=== PATIENT | female | born 1955 | race Two or more races ===

== ENCOUNTER 2018-01-27 15:35 | Observation (INO) | payer OTHER ==
--- NOTE | 2018-01-27 16:09 | PDOC ---
History of Present Illness - General Chief Complaint: Rectal Bleed Stated Complaint: BLOOD TRANSFUSION Time Seen by Provider: 01/27/18 15:56 - History of Present Illness Initial Comments: 62 year old female with PMH of HTN and chronic anemia (on iron supplementation) presenting with a few weeks of fatigue and occasional SOB. Patient admits that she had been off her iron supplementation when she moved over to [place] a 2 years prior but recently restarted the supplementation one year ago on an intermittent basis, although she was told to continue it daily. She saw Dr. Woodson today who checked her HgB and noted that it was in the 6s so she was sent to the ED for transfusion and further workup. Of note, she received an endoscopy and colonoscopy 5 years prior during another episode of severe anemia which did not demonstrate any GI lesions. She denies bright red blood from any orifice but does have dark stools (she is on iron supplementation). 01/27/18 16:09 Past History - Past Medical History Allergies/Adverse Reactions: Allergies Allergy/AdvReac Type Severity Reaction Status Date / Time gabapentin AdvReac Abdominal Verified 01/27/18 16:16 pain Home Medications: Ambulatory Orders Multivitamin [Daily Multiple Vitamin] 1 each PO DAILY tablet 05/17/17 Aspirin 81 mg PO DAILY 01/27/18 Review of Systems - Review of Systems Constitutional: No: Chills, Diaphoresis, Fever, Night Sweats HEENTM: No: Blurred Vision, Tearing, Recent change in vision Respiratory: Yes: SOB with Exertion. No: Cough, Orthopnea, Shortness of Breath , SOB at Rest, Wheezing, Hemoptysis Cardiac (ROS): Yes: Lightheadedness. No: Chest Pain, Edema, Irregular Heart Rate, Palpitations ABD/GI: No: Diarrhea, Nausea, Vomiting, Tarry Stools : No: Burning, Dysuria, Discharge, Frequency Musculoskeletal: No: Back Pain, Joint Pain, Muscle Weakness Integumentary: No: Bruising, Erythema, Flushing Neurological: No: Headache, Numbness, Paresthesia, Ataxia Psychiatric: No: Anxiety Endocrine: No: Intolerance to Cold, Increased Thirst, Increased Urine, Unexplained Weight Loss Hematologic/Lymphatic: Yes: Anemia. No: Blood Clots, Easy Bleeding *Physical Exam - Physical Exam General Appearance: Yes: Nourished, Appropriately Dressed, Other (Pale). No: Apparent Distress HEENT: positive: EOMI, MICHELL, Normal ENT Inspection, Normal Voice Neck: positive: Trachea midline, Normal Thyroid, Supple. negative: Tender, Rigid Respiratory/Chest: positive: Lungs Clear, Normal Breath Sounds. negative: Chest Tender, Respiratory Distress, Accessory Muscle Use Cardiovascular: positive: Regular Rhythm, Tachycardia. negative: Regular Rate Gastrointestinal/Abdominal: positive: Normal Bowel Sounds, Flat, Soft. negative : Tender Rectal Exam: positive: normal exam, normal rectal tone, heme positive stool. negative: heme negative stool, hemorrhoids Lymphatic: negative: Adenopathy, Tenderness Musculoskeletal: positive: Normal Inspection. negative: Decreased Range of Motion Extremity: positive: Normal Capillary Refill, Normal Inspection, Normal Range of Motion. negative: Tender Integumentary: positive: Normal Color, Dry, Warm Neurologic: positive: Fully Oriented, Alert, Normal Mood/Affect, Normal Response , Motor Strength / ED Treatment Course - LABORATORY CBC & Chemistry Diagram: 01/27/18 16:40 01/27/18 16:40 Medical Decision Making - Medical Decision Making 62 year old female with PMH of of anemia and HTN presenting with SOB, fatigue, and pallor for the past few weeks in the settings of dark stools. Although patient is taking iron supplementation, the stool was heme positive so patient will be admitted for GI bleed workup and transfusion. Patietn was signed out to Dr. Yi pending transfusion. 01/27/18 17:51 *DC/Admit/Observation/Transfer Diagnosis at time of Disposition: Anemia Qualifiers: Anemia type: unspecified type Qualified Code(s): D64.9 - Anemia, unspecified GI bleed Qualifiers: GI bleed type/associated pathology: melena Qualified Code(s): K92.1 - Melena - Discharge Dispostion Condition at time of disposition: Stable Decision to Admit order: Yes - Referrals Referrals: Figueroa Woodson MD [Primary Care Provider] - - Patient Instructions - Post Discharge Activity
--- NOTE | 2018-01-27 16:23 | PDOC ---
Attending Attestation - ED Attending Attestation I have performed the following: I have examined & evaluated the patient, The case was reviewed & discussed with the resident, I agree w/resident's findings & plan, Exceptions are as noted - HPI HPI: 01/27/18 16:29 The patient is a 62 year old female with a significant past medical history of anemia who presents to the emergency department for a blood transfusion. The patient reports visiting her primary care doctor (Dr. Woodson) today for symptoms of fatigue and rectal bleeding, who prompted her to visit the emergency department for further evaluation. The patient reports feeling fatigued, lightheaded, and generally weak for several weeks. The patient reports producing dark tarry stools. She denies any bright red blood in spit or stool. She reports taking iron supplements for anemia, but notes she has not been taking the supplement regularly due to busy schedule. Of note, as per Dr. Woodson , the patients hemoglobin is 6.0. The patient denies chest pain, shortness of breath, headache, and dizziness. Denies fevers, chills, nausea, vomiting, diarrhea, and constipation. Allergies: Gabapentin. Social history: No reported cigarette, alcohol, or drug use. PCP: Dr. Woodson - Physicial Exam PE: GENERAL: Awake, alert, and fully oriented, in no acute distress HEAD: No signs of trauma EYES: PERRLA, EOMI, sclera anicteric, conjunctiva clear ENT: Auricles normal inspection, hearing grossly normal. NECK: Normal ROM, supple, no JVD, or masses LUNGS: Breath sounds equal, clear to auscultation bilaterally. No wheezes, and no crackles HEART: Regular rate and rhythm, normal S1 and S2, no murmurs, rubs or gallops ABDOMEN: Soft, nontender. No guarding, no rebound. No masses EXTREMITIES: Normal range of motion, no edema. No clubbing or cyanosis. No cords, erythema, or tenderness NEUROLOGICAL: Cranial nerves II through XII grossly intact. Normal speech. SKIN: (+)Pallor. Warm, Dry, normal turgor, no rashes or lesions noted. <Aidan Whelan - Last Filed: 01/27/18 16:28> - Resident Resident Name: Mio Spicer - ED Attending Attestation I have performed the following: I have examined & evaluated the patient, The case was reviewed & discussed with the resident, I agree w/resident's findings & plan, Exceptions are as noted - Medical Decision Making 01/27/18 16:20 A portion of this note was written by my scribe, under my supervision. 62 yo F c/ hx HTN, iron-deficiency anemia p/w symptomatic anemia. For several weeks, pt has reporting dyspnea on exertion, fatigue, generalized weakness. No fevers, chills. Reports chronic dark stools but thinks its secondary to iron pills. Denies abdominal pain or recent illnesses. Pt went to follow up with Dr. Woodson and noted Hgb ~ 6. Pt with symptomatic anemia. I agree with resident plan for FOBT, blood transfusion and admission. While inpatient, consider IV transfusion of iron ECG, troponin, labs Risks and benefits discussed with patient regarding blood transfusion including risks of fever, infection, and blood transfusion reaction. Pt consents for blood transfusion. 01/27/18 17:55 CBC, BMP 01/27/18 16:40 01/27/18 16:40 CMP Sodium 137 mmol/L (136-145) 01/27/18 16:40 Potassium 4.0 mmol/L (3.5-5.1) 01/27/18 16:40 Chloride 105 mmol/L (98-107) 01/27/18 16:40 Carbon Dioxide 26 mmol/L (22-28) 01/27/18 16:40 Anion Gap 6 (8-16) L 01/27/18 16:40 BUN 15 mg/dl (7-18) 01/27/18 16:40 Creatinine < 0.8 mg/dl (0.6-1.3) 01/27/18 16:40 Creat Clearance w eGFR > 60 (>60) 01/27/18 16:40 Random Glucose 95 mg/dl (74-106) 01/27/18 16:40 Calcium 9.1 mg/dl (8.4-10.2) 01/27/18 16:40 Total Bilirubin < 0.5 mg/dl (0.2-1.0) 01/27/18 16:40 AST 44 U/L (10-42) H D 01/27/18 16:40 ALT 31 U/L (10-40) 01/27/18 16:40 Alkaline Phosphatase 61 U/L (32-92) 01/27/18 16:40 Total Protein 5.7 g/dl (6.4-8.3) L 01/27/18 16:40 Albumin 3.5 g/dl (3.5-5.0) 01/27/18 16:40 Urine Test Results Urine Color Yellow 01/27/18 17:40 Urine Appearance Clear 01/27/18 17:40 Urine pH 6.5 (4.5-8) 01/27/18 17:40 Ur Specific [place] 1.020 (1.005-1.025) 01/27/18 17:40 Urine Protein Negative (NEGATIVE) 01/27/18 17:40 Urine Glucose (UA) Negative (NEGATIVE) 01/27/18 17:40 Urine Ketones Negative (NEGATIVE) 01/27/18 17:40 Urine Blood Negative (NEGATIVE) 01/27/18 17:40 Urine Nitrite Negative (NEGATIVE) 01/27/18 17:40 Urine Bilirubin Negative (NEGATIVE) 01/27/18 17:40 Ur Leukocyte Esterase 1+ (NEGATIVE) H 01/27/18 17:40 Stool occult positive. Initiate protonix for presumed UGIB and transfuse PRBC Admit <Amanuel Ivy - Last Filed: 01/27/18 17:55> Heart Score/ECG Review #1 ECG reviewed & interpreted by me at: 17:05 01/27/18 17:34 NSR 105, no std/cirilo, normal axis, normal intervals, QTC 444 msec <Amanuel Ivy - Last Filed: 01/27/18 17:55> Attestations - Attestations Documentation prepared by Aidan Whelan, acting as biomedical engineering professor for Amanuel Ivy MD. <Aidan Whelan - Last Filed: 01/27/18 16:28>
[2018-01-27 17:24] LABS: BASO % 0.2 % (0-2.0); EOS % 2.8 % (0-4.5); HEMATOCRIT 20.4 % (32.4-45.2); LYMPH % 14.1 % (8-40); MCH 30.1 pg (25.7-33.7); MCHC 32.6 g/dl (32.0-36.0); MEAN CELL VOLUME 92.3 fl (80-96); MEAN PLT VOLUME 9.8 fl (7.5-11.1); MONO % 5.5 % (3.8-10.2); NEUT % 77.4 % (42.8-82.8); PLATELET COUNT 274 K/MM3 (134-434); RBC 2.21 M/mm3 (3.60-5.2); RDW 13.6 % (11.6-15.6)
[2018-01-27 17:26] LABS: HEMOGLOBIN 6.7 GM/dl (10.7-15.3)
[2018-01-27 17:27] LABS: ALBUMIN 3.5 g/dl (3.5-5.0); ALK PHOS 61 U/L (32-92); ANION GAP 6 (8-16); BLOOD UREA NITROGEN 15 mg/dl (7-18); CALCIUM 9.1 mg/dl (8.4-10.2); CHLORIDE 105 mmol/L (98-107); CO2 26 mmol/L (22-28); GLUCOSE,RANDOM 95 mg/dl (74-106); SGOT/AST 44 U/L (10-42); SGPT/ALT 31 U/L (10-40); SODIUM 137 mmol/L (136-145); TOT PROT 5.7 g/dl (6.4-8.3)
[2018-01-27 17:41] LABS: BILIRUBIN,TOTAL < 0.5 mg/dl (0.2-1.0); CREATININE < 0.8 mg/dl (0.6-1.3)
[2018-01-27 17:43] LABS: INR 1.07 (0.82-1.09)
[2018-01-27 17:50] LABS: PH,URINE 6.5 (4.5-8); URINE APPEARANCE Clear; URINE BILIRUBIN Negative (NEGATIVE); URINE BLOOD Negative (NEGATIVE); URINE GLUCOSE (UA) Negative (NEGATIVE); URINE KETONE Negative (NEGATIVE); URINE NITRITE Negative (NEGATIVE); URINE PROTEIN Negative (NEGATIVE); URINE UROBILINOGEN 0.2 (0.2-1.0)
[2018-01-27] MEDS ORDERED: PANTOPRAZOLE SODIUM 40 MG VIAL IVPUSH ONE (17:51)
[2018-01-27 17:52] LABS: URINE COLOR YELLOW; URINE LEUK ESTERASE 1+ (NEGATIVE)
[2018-01-27] MEDS ORDERED: PANTOPRAZOLE SODIUM 40 MG VIAL ONE (18:12)
[2018-01-27 18:29] LABS: URINE BACTERIA FEW /hpf (NEGATIVE); URINE RBC 0-2 /hpf (0-3)
[2018-01-27] MEDS ORDERED: ACETAMINOPHEN 325 MG TABLET (FP) PO PRN (20:41)
--- NOTE | 2018-01-27 21:46 | PDOC ---
*Physical Exam - Vital Signs Last Vital Signs Temp Pulse Resp BP Pulse Ox 99.7 F H 96 H 18 136/74 100 01/27/18 18:51 01/27/18 18:51 01/27/18 18:51 01/27/18 18:51 01/27/18 18:51 ED Treatment Course - LABORATORY CBC & Chemistry Diagram: 01/27/18 16:40 01/27/18 16:40 - ADDITIONAL ORDERS Additional order review: Laboratory Results 01/27/18 01/27/18 01/27/18 17:40 16:40 16:40 PT with INR INR Sodium Potassium Chloride Carbon Dioxide Anion Gap BUN Creatinine Creat Clearance w eGFR Random Glucose Calcium Total Bilirubin AST ALT Alkaline Phosphatase Troponin I Total Protein Albumin Urine Color Yellow Urine Appearance Clear Urine pH 6.5 Ur Specific [place] 1.020 Urine Protein Negative Urine Glucose (UA) Negative Urine Ketones Negative Urine Blood Negative Urine Nitrite Negative Urine Bilirubin Negative Urine Urobilinogen 0.2 Ur Leukocyte Esterase 1+ H Urine RBC 0-2 Urine WBC 10-20 Urine Bacteria Few Stool Occult Blood Blood Type O POSITIVE O POSITIVE Antibody Screen Negative Cancelled Crossmatch See Detail 01/27/18 01/27/18 01/27/18 16:40 16:40 16:40 PT with INR 12.0 INR 1.07 Sodium 137 Potassium 4.0 Chloride 105 Carbon Dioxide 26 Anion Gap 6 L BUN 15 Creatinine < 0.8 Creat Clearance w eGFR > 60 Random Glucose 95 Calcium 9.1 Total Bilirubin < 0.5 AST 44 H D ALT 31 Alkaline Phosphatase 61 Troponin I Total Protein 5.7 L Albumin 3.5 Urine Color Urine Appearance Urine pH Ur Specific [place] Urine Protein Urine Glucose (UA) Urine Ketones Urine Blood Urine Nitrite Urine Bilirubin Urine Urobilinogen Ur Leukocyte Esterase Urine RBC Urine WBC Urine Bacteria Stool Occult Blood Positive Blood Type Antibody Screen Crossmatch 01/27/18 16:22 PT with INR INR Sodium Potassium Chloride Carbon Dioxide Anion Gap BUN Creatinine Creat Clearance w eGFR Random Glucose Calcium Total Bilirubin AST ALT Alkaline Phosphatase Troponin I < 0.03 Total Protein Albumin Urine Color Urine Appearance Urine pH Ur Specific [place] Urine Protein Urine Glucose (UA) Urine Ketones Urine Blood Urine Nitrite Urine Bilirubin Urine Urobilinogen Ur Leukocyte Esterase Urine RBC Urine WBC Urine Bacteria Stool Occult Blood Blood Type Antibody Screen Crossmatch 01/27/18 16:40 RBC 2.21 L MCV 92.3 MCHC 32.6 RDW 13.6 MPV 9.8 Neutrophils % 77.4 Lymphocytes % 14.1 Monocytes % 5.5 Eosinophils % 2.8 Basophils % 0.2 - Medications Given in the ED: ED Medications Discontinued Medications Generic Name Dose Route Start Last Admin Trade Name Marilee PRN Reason Stop Dose Admin Pantoprazole Sodium 40 mg 01/27/18 17:51 01/27/18 18:12 Protonix Iv IVPUSH 01/27/18 17:52 40 mg ONCE ONE Administration Progress Note - Progress Note Progress Note: Gastroenterology consult call to Dr. Law as per [facility] order. Informed by Dr. Law that Dr. Abernathy handles inpatient consultations at [facility]. Dr. Abernathy called and case discussed with him. He will see patient in the morning. Further evaluation(endoscopy, etc.) for source of GI bleed as per Dr. Abernathy *DC/Admit/Observation/Transfer Diagnosis at time of Disposition: Anemia Qualifiers: Anemia type: unspecified type Qualified Code(s): D64.9 - Anemia, unspecified GI bleed Qualifiers: GI bleed type/associated pathology: melena Qualified Code(s): K92.1 - Melena - Discharge Dispostion Condition at time of disposition: Stable - Referrals - Patient Instructions - Post Discharge Activity
--- NOTE | 2018-01-27 22:32 | HP ---
CHIEF COMPLAINT: Fatigue, Weakness, SOB PCP: Dr. Woodson HISTORY OF PRESENT ILLNESS: This is a pleasant 62 y/o woman with a PMHx of Chronic Anemia, HTN. Who presents to the ED with fatigue, dyspnea, palpitations x several weeks, dark tarry stools for 2 months. Patient reports seeing her PCP for same, in outpatient hgb 6.8, was sent in for evaluation and PRBCs. Patient reports having an EGD and colonoscopy at [facility] 3-5 years ago after having her blood transfusion for Anemia- results WNL. Patient denies fever, cough, CP, AP, N/V/D, hematochezia, hematuria, dysuria. Patient denies Familial Colorectal Ca. ER course was notable for: (1) Hgb 6.7 (2) T- Max 100, P 120 (3) Recent Travel: None PAST MEDICAL HISTORY: See HPI PAST SURGICAL HISTORY: Social History: Smoking: Never Alcohol: None Drugs: None Family History: Non-Contributory Allergies gabapentin Allergy (Verified 01/27/18 21:05) Abdominal pain HOME MEDICATIONS: Home Medications Medication Instructions Recorded Multivitamin [Daily Multiple 1 each PO DAILY tablet 05/17/17 Vitamin] Aspirin 81 mg PO DAILY 01/27/18 REVIEW OF SYSTEMS CONSTITUTIONAL: generalized weakness, malaise Absent: fever, chills, diaphoresis, loss of appetite, weight change HEENT: Absent: rhinorrhea, nasal congestion, throat pain, throat swelling, difficulty swallowing, mouth swelling, ear pain, eye pain, visual changes CARDIOVASCULAR: Absent: chest pain, syncope, palpitations, irregular heart rate, lightheadedness , peripheral edema RESPIRATORY: shortness of breath Absent: cough, dyspnea with exertion, orthopnea, wheezing, stridor, hemoptysis GASTROINTESTINAL: melena, Absent: abdominal pain, abdominal distension, nausea, vomiting, diarrhea, constipation, hematochezia GENITOURINARY: Absent: dysuria, frequency, urgency, hesitancy, hematuria, flank pain, genital pain MUSCULOSKELETAL: Absent: myalgia, arthralgia, joint swelling, back pain, neck pain SKIN: Absent: rash, itching, pallor HEMATOLOGIC/IMMUNOLOGIC: Absent: easy bleeding, easy bruising, lymphadenopathy, frequent infections ENDOCRINE: Absent: unexplained weight gain, unexplained weight loss, heat intolerance, cold intolerance NEUROLOGIC: Absent: headache, focal weakness or paresthesias, dizziness, unsteady gait, seizure, mental status changes, bladder or bowel incontinence PSYCHIATRIC: Absent: anxiety, depression, suicidal or homicidal ideation, hallucinations. PHYSICAL EXAMINATION Vital Signs - 24 hr 01/27/18 01/27/18 01/27/18 15:47 17:47 18:51 Temperature 100 F H 99.7 F H Pulse Rate 120 H Pulse Rate [ 105 H 96 H Apical] Respiratory 18 18 18 Rate Blood Pressure 122/81 Blood Pressure 136/74 [Arm] O2 Sat by Pulse 100 100 Oximetry (%) GENERAL: Awake, alert, and fully oriented, in no acute distress. HEAD: Normal with no signs of trauma. EYES: Pupils equal, round and reactive to light, extraocular movements intact, sclera anicteric, conjunctiva,pale clear. No lid lag. EARS, NOSE, THROAT: Ears normal, nares patent, oropharynx clear without exudates. Dry mucous membranes. NECK: Normal range of motion, supple without lymphadenopathy, JVD, or masses. LUNGS: Breath sounds equal, clear to auscultation bilaterally. No wheezes, and no crackles. No accessory muscle use. HEART: Regular rate and rhythm, normal S1 and S2 without murmur, rub or gallop. ABDOMEN: Soft, nontender, not distended, normoactive bowel sounds, no guarding, no rebound, no masses. No hepatomegaly or splenomegaly. MUSCULOSKELETAL: Normal range of motion at all joints. No bony deformities or tenderness. No CVA tenderness. UPPER EXTREMITIES: 2+ pulses, warm, well-perfused. No cyanosis. No clubbing. No peripheral edema. LOWER EXTREMITIES: 2+ pulses, warm, well-perfused. No calf tenderness. No peripheral edema. NEUROLOGICAL: Cranial nerves II-XII intact. Normal speech. Normal gait. PSYCHIATRIC: Cooperative. Good eye contact. Appropriate mood and affect. SKIN: Pallor,Warm, dry, normal turgor, no rashes or lesions noted, normal capillary refill. Laboratory Results - last 24 hr 01/27/18 01/27/18 01/27/18 16:22 16:40 16:40 WBC 6.0 RBC 2.21 L Hgb 6.7 L* Hct 20.4 L MCV 92.3 MCH 30.1 MCHC 32.6 RDW 13.6 Plt Count 274 MPV 9.8 Neutrophils % 77.4 Lymphocytes % 14.1 Monocytes % 5.5 Eosinophils % 2.8 Basophils % 0.2 PT with INR 12.0 INR 1.07 Sodium Potassium Chloride Carbon Dioxide Anion Gap BUN Creatinine Creat Clearance w eGFR Random Glucose Calcium Total Bilirubin AST ALT Alkaline Phosphatase Troponin I < 0.03 Total Protein Albumin Urine Color Urine Appearance Urine pH Ur Specific [place] Urine Protein Urine Glucose (UA) Urine Ketones Urine Blood Urine Nitrite Urine Bilirubin Urine Urobilinogen Ur Leukocyte Esterase Urine RBC Urine WBC Urine Bacteria Stool Occult Blood Blood Type Antibody Screen Crossmatch 01/27/18 01/27/18 01/27/18 16:40 16:40 16:40 WBC RBC Hgb Hct MCV MCH MCHC RDW Plt Count MPV Neutrophils % Lymphocytes % Monocytes % Eosinophils % Basophils % PT with INR INR Sodium 137 Potassium 4.0 Chloride 105 Carbon Dioxide 26 Anion Gap 6 L BUN 15 Creatinine < 0.8 Creat Clearance w eGFR > 60 Random Glucose 95 Calcium 9.1 Total Bilirubin < 0.5 AST 44 H D ALT 31 Alkaline Phosphatase 61 Troponin I Total Protein 5.7 L Albumin 3.5 Urine Color Urine Appearance Urine pH Ur Specific [place] Urine Protein Urine Glucose (UA) Urine Ketones Urine Blood Urine Nitrite Urine Bilirubin Urine Urobilinogen Ur Leukocyte Esterase Urine RBC Urine WBC Urine Bacteria Stool Occult Blood Positive Blood Type O POSITIVE Antibody Screen Cancelled Crossmatch 01/27/18 01/27/18 16:40 17:40 WBC RBC Hgb Hct MCV MCH MCHC RDW Plt Count MPV Neutrophils % Lymphocytes % Monocytes % Eosinophils % Basophils % PT with INR INR Sodium Potassium Chloride Carbon Dioxide Anion Gap BUN Creatinine Creat Clearance w eGFR Random Glucose Calcium Total Bilirubin AST ALT Alkaline Phosphatase Troponin I Total Protein Albumin Urine Color Yellow Urine Appearance Clear Urine pH 6.5 Ur Specific [place] 1.020 Urine Protein Negative Urine Glucose (UA) Negative Urine Ketones Negative Urine Blood Negative Urine Nitrite Negative Urine Bilirubin Negative Urine Urobilinogen 0.2 Ur Leukocyte Esterase 1+ H Urine RBC 0-2 Urine WBC 10-20 Urine Bacteria Few Stool Occult Blood Blood Type O POSITIVE Antibody Screen Negative Crossmatch See Detail ASSESSMENT/PLAN: This is a 62 y/o woman PMHx Chronic Anemia, HTN. Placed in Observation for Symptomatic Anemia, GI Bleeding. Plan: Place in Observation for Symptomatic Anemia likely secondary to GIB Hgb 6.7, baseline 12.2 Stool Occult + Iron Studies ordered PRBCs x2 tonight Repeat CBC in am Appreciate GI consult Will need EGD/Colonoscopy FU with Heme outpatient Monitor vitals Will need IVF post transfusion, Day team to monitor in am Continue BP meds UA- showed +1 leukocytes, patient is asymptomatic will not treat, but will continue to monitor NPO DVT ppx- OOB, SCDs, Hold AC 2/2 Anemia, GIB PPI Code Status: Full Code Dispo: Observation Problem List - Problem (1) Anemia Code(s): D64.9 - ANEMIA, UNSPECIFIED Qualifiers: Anemia type: unspecified type Qualified Code(s): D64.9 - Anemia, unspecified (2) GI bleed Code(s): K92.2 - GASTROINTESTINAL HEMORRHAGE, UNSPECIFIED Qualifiers: GI bleed type/associated pathology: melena Qualified Code(s): K92.1 - Melena Visit type - Emergency Visit Emergency Visit: Yes ED Registration Date: 01/27/18 Care time: The patient presented to the Emergency Department on the above date and was hospitalized for further evaluation of their emergent condition. - New Patient This patient is new to me today: Yes Date on this admission: 01/27/18 - Critical Care Critical Care patient: No Hospitalist Screening - Colonoscopy Questionnaire Colonoscopy Questionnaire: Colonoscopy Questionnaire - Patient: 50 - 75 years old and never had a screening colonoscopy: No History of colon or rectal polyps, or CA: No History of IBD, Crohn's disease or UC: No History of abdominal radiation therapy as a child: No - Relative: 1 with colon or rectal CA, or polyps at age 60 or younger: No Colon or rectal CA diagnosed at age 45 or younger: No Multiple relatives with colon or rectal CA: No - Outcome: Screening Result: Negative Screen
[2018-01-27 22:46] VITALS: BMI 21.2
[2018-01-28 08:10] LABS: SERUM IRON SATURATION 87 % (15-55); TOTAL IRON BINDING CAPACITY 379 ug/dL (250-450); UIBC 51 ug/dL (118-369)
[2018-01-28 09:32] LABS: ALBUMIN 3.4 g/dl (3.5-5.0); ALK PHOS 54 U/L (32-92); ANION GAP 3 (8-16); BILIRUBIN,TOTAL 1.1 mg/dl (0.2-1.0); BLOOD UREA NITROGEN 11 mg/dl (7-18); CALCIUM 8.7 mg/dl (8.4-10.2); CHLORIDE 108 mmol/L (98-107); CO2 27 mmol/L (22-28); GLUCOSE,RANDOM 97 mg/dl (74-106); POTASSIUM 4.1 mmol/L (3.5-5.1); SGOT/AST 30 U/L (10-42); SGPT/ALT 28 U/L (10-40); SODIUM 138 mmol/L (136-145); TOT PROT 5.4 g/dl (6.4-8.3)
[2018-01-28 09:37] LABS: BASO % 0.2 % (0-2.0); EOS % 3.8 % (0-4.5); HEMATOCRIT 30.5 % (32.4-45.2); HEMOGLOBIN 9.9 GM/dl (10.7-15.3); LYMPH % 17.1 % (8-40); MCH 29.5 pg (25.7-33.7); MCHC 32.4 g/dl (32.0-36.0); MEAN CELL VOLUME 90.9 fl (80-96); MEAN PLT VOLUME 9.5 fl (7.5-11.1); MONO % 6.9 % (3.8-10.2); PLATELET COUNT 274 K/MM3 (134-434); RBC 3.35 M/mm3 (3.60-5.2); RDW 14.4 % (11.6-15.6); WHITE BLOOD COUNT 6.5 K/mm3 (4.0-10.8)
[2018-01-28 09:43] LABS: CREATININE < 0.8 mg/dl (0.6-1.3)
[2018-01-28] MEDS ORDERED: LOSARTAN POTASSIUM 50 MG TABLET (FP) PO SCH (10:00)
[2018-01-28] MEDS ORDERED: PANTOPRAZOLE SODIUM 40 MG VIAL IVPUSH SCH (10:00)
--- NOTE | 2018-01-28 10:18 | EKG ---
Test Reason : Blood Pressure : / mmHG Vent. Rate : 105 BPM Atrial Rate : 105 BPM P-R Int : 156 ms QRS Dur : 076 ms QT Int : 336 ms P-R-T Axes : 048 053 034 degrees QTc Int : 444 ms SINUS TACHYCARDIA NO PREVIOUS ECGS AVAILABLE Confirmed by ELLA DESIR MD ([id number]) on 01/28/2018 10:18:38 AM Referred By: DR NIÑO Confirmed By:ELLA DESIR MD
--- NOTE | 2018-01-28 10:32 | PN ---
Physical Exam: SUBJECTIVE: Patient seen and examined. She is s/p transfusion, states she still has dizziness. Denies hematochezia, hematuria. OBJECTIVE: Vital Signs Period Temp Pulse Resp BP Sys/Abdul Pulse Ox Last 24 Hr 98.2 F-100 F 76-120 16-18 98-136/53-81 100-100 PE Neuro: alert, awake, cn 2-12intact, + dizziness Pulm: CTAB CV: s1 s2 rrr no mrg Abd: s nt nd +bs Ext: warm no le edema MSk: back pain Laboratory Results - last 24 hr 01/27/18 01/27/18 01/27/18 08:27 08:30 16:22 WBC Cancelled Corrected WBC (auto) Cancelled RBC Cancelled Hgb Cancelled Hct Cancelled MCV Cancelled MCH Cancelled MCHC Cancelled RDW Cancelled Plt Count Cancelled MPV Cancelled Absolute Neuts (auto) Cancelled Absolute Lymphs (auto) Cancelled Absolute Monos (auto) Cancelled Absolute Eos (auto) Cancelled Absolute Basos (auto) Cancelled Add Manual Diff Cancelled Neutrophils % Cancelled Lymphocytes % Cancelled Monocytes % Cancelled Eosinophils % Cancelled Basophils % Cancelled Nucleated RBC % Cancelled Platelet Estimate Cancelled Platelet Comment Cancelled Normal RBC Morphology Cancelled PT with INR INR Sodium 138 Potassium 4.1 Chloride 108 H Carbon Dioxide 27 Anion Gap 3 L BUN 11 D Creatinine < 0.8 D Creat Clearance w eGFR > 60 Random Glucose 97 Calcium 8.7 Iron TIBC Iron Saturation Total Bilirubin 1.1 H D AST 30 ALT 28 D Alkaline Phosphatase 54 D Troponin I < 0.03 Total Protein 5.4 L Albumin 3.4 L Urine Color Urine Appearance Urine pH Ur Specific [place] Urine Protein Urine Glucose (UA) Urine Ketones Urine Blood Urine Nitrite Urine Bilirubin Urine Urobilinogen Ur Leukocyte Esterase Urine RBC Urine WBC Urine Bacteria Stool Occult Blood Blood Type Antibody Screen Crossmatch 01/27/18 01/27/18 01/27/18 16:40 16:40 16:40 WBC 6.0 Corrected WBC (auto) RBC 2.21 L Hgb 6.7 L* Hct 20.4 L MCV 92.3 MCH 30.1 MCHC 32.6 RDW 13.6 Plt Count 274 MPV 9.8 Absolute Neuts (auto) Absolute Lymphs (auto) Absolute Monos (auto) Absolute Eos (auto) Absolute Basos (auto) Add Manual Diff Neutrophils % 77.4 Lymphocytes % 14.1 Monocytes % 5.5 Eosinophils % 2.8 Basophils % 0.2 Nucleated RBC % Platelet Estimate Platelet Comment Normal RBC Morphology PT with INR 12.0 INR 1.07 Sodium Potassium Chloride Carbon Dioxide Anion Gap BUN Creatinine Creat Clearance w eGFR Random Glucose Calcium Iron TIBC Iron Saturation Total Bilirubin AST ALT Alkaline Phosphatase Troponin I Total Protein Albumin Urine Color Urine Appearance Urine pH Ur Specific [place] Urine Protein Urine Glucose (UA) Urine Ketones Urine Blood Urine Nitrite Urine Bilirubin Urine Urobilinogen Ur Leukocyte Esterase Urine RBC Urine WBC Urine Bacteria Stool Occult Blood Positive Blood Type Antibody Screen Crossmatch 01/27/18 01/27/18 01/27/18 16:40 16:40 16:40 WBC Corrected WBC (auto) RBC Hgb Hct MCV MCH MCHC RDW Plt Count MPV Absolute Neuts (auto) Absolute Lymphs (auto) Absolute Monos (auto) Absolute Eos (auto) Absolute Basos (auto) Add Manual Diff Neutrophils % Lymphocytes % Monocytes % Eosinophils % Basophils % Nucleated RBC % Platelet Estimate Platelet Comment Normal RBC Morphology PT with INR INR Sodium 137 Potassium 4.0 Chloride 105 Carbon Dioxide 26 Anion Gap 6 L BUN 15 Creatinine < 0.8 Creat Clearance w eGFR > 60 Random Glucose 95 Calcium 9.1 Iron TIBC Iron Saturation Total Bilirubin < 0.5 AST 44 H D ALT 31 Alkaline Phosphatase 61 Troponin I Total Protein 5.7 L Albumin 3.5 Urine Color Urine Appearance Urine pH Ur Specific [place] Urine Protein Urine Glucose (UA) Urine Ketones Urine Blood Urine Nitrite Urine Bilirubin Urine Urobilinogen Ur Leukocyte Esterase Urine RBC Urine WBC Urine Bacteria Stool Occult Blood Blood Type O POSITIVE O POSITIVE Antibody Screen Cancelled Negative Crossmatch See Detail 01/27/18 01/27/18 01/28/18 17:40 17:50 08:30 WBC 6.5 Corrected WBC (auto) RBC 3.35 L D Hgb 9.9 L D Hct 30.5 L D MCV 90.9 MCH 29.5 MCHC 32.4 RDW 14.4 Plt Count 274 MPV 9.5 Absolute Neuts (auto) Absolute Lymphs (auto) Absolute Monos (auto) Absolute Eos (auto) Absolute Basos (auto) Add Manual Diff Neutrophils % 72.0 Lymphocytes % 17.1 Monocytes % 6.9 Eosinophils % 3.8 Basophils % 0.2 Nucleated RBC % Platelet Estimate Platelet Comment Normal RBC Morphology PT with INR INR Sodium Potassium Chloride Carbon Dioxide Anion Gap BUN Creatinine Creat Clearance w eGFR Random Glucose Calcium Iron 328 H TIBC 379 Iron Saturation 87 H Total Bilirubin AST ALT Alkaline Phosphatase Troponin I Total Protein Albumin Urine Color Yellow Urine Appearance Clear Urine pH 6.5 Ur Specific [place] 1.020 Urine Protein Negative Urine Glucose (UA) Negative Urine Ketones Negative Urine Blood Negative Urine Nitrite Negative Urine Bilirubin Negative Urine Urobilinogen 0.2 Ur Leukocyte Esterase 1+ H Urine RBC 0-2 Urine WBC 10-20 Urine Bacteria Few Stool Occult Blood Blood Type Antibody Screen Crossmatch Active Medications Generic Name Dose Route Start Last Admin Trade Name Freq PRN Reason Stop Dose Admin Acetaminophen 650 mg 01/27/18 20:41 Tylenol - PO Q6H PRN PAIN OR FEVER Pantoprazole Sodium 40 mg 01/28/18 10:00 01/28/18 09:51 Protonix Iv IVPUSH 40 mg DAILY DELILAH Administration Assessment: 62 year old female with PMHx of HTN and chronic anemia (on iron supplementation) presenting with a few weeks of fatigue and occasional SOB sent in from PCP for hgb 6.7. Plan: 1. Acute blood loss anemia on chronic anemia - s/p 1uprbc with appropriate rise - Iron studies noted - Hold ASA 2. Positive stool guiac - GI to see pt today, planned for endoscopy - PT previous colonoscopy/endoscopy 5 yeas ago negative for lesions ~5 yrs ago with similar episode. 3. HTN - BP low start gentle fluids - Losartan 50mg daily 4. Asymptomatic bacteriuria - Denies dysuria, frequency, hesitation - Will hold off on abx at this time 5. DVT - SCDs, hold chemical AC d/t anemia Visit type - Emergency Visit Emergency Visit: Yes ED Registration Date: 01/27/18 Care time: The patient presented to the Emergency Department on the above date and was hospitalized for further evaluation of their emergent condition. - New Patient This patient is new to me today: Yes Date on this admission: 01/28/18 - Critical Care Critical Care patient: No
[2018-01-28] MEDS ORDERED: SODIUM CHLORIDE 1,000 ML IV SCH (10:45)
[2018-01-28] MEDS ORDERED: LIDOCAINE HCL/PF 2% SDV 5ML VIAL ONE (13:00)
[2018-01-28] MEDS ORDERED: PROPOFOL 20 ML ONE ×2 (13:00)
--- NOTE | 2018-01-28 14:04 | DS ---
Physical Exam: SUBJECTIVE: Patient seen and examined OBJECTIVE: Vital Signs Period Temp Pulse Resp BP Sys/Abdul Pulse Ox Last 24 Hr 98.2 F-100 F 76-120 16-18 98-136/53-81 98-100 PHYSICAL EXAM GENERAL: The patient is awake, alert, and fully oriented, in no acute distress. HEAD: Normal with no signs of trauma. EYES: PERRL, extraocular movements intact, sclera anicteric, conjunctiva clear. ENT: Ears normal, nares patent, oropharynx clear without exudates, moist mucous membranes. NECK: Trachea midline, full range of motion, supple. LUNGS: Breath sounds equal, clear to auscultation bilaterally, no wheezes, no crackles, no accessory muscle use. HEART: Regular rate and rhythm, S1, S2 without murmur, rub or gallop. ABDOMEN: Soft, nontender, nondistended, normoactive bowel sounds, no guarding, no rebound, no hepatosplenomegaly, no masses. EXTREMITIES: 2+ pulses, warm, well-perfused, no edema. NEUROLOGICAL: Cranial nerves II through XII grossly intact. Normal speech, gait not observed. PSYCH: Normal mood, normal affect. SKIN: Warm, dry, normal turgor, no rashes or lesions noted. LABS Laboratory Results - last 24 hr 01/27/18 01/27/18 01/27/18 08:27 08:30 16:22 WBC Cancelled Corrected WBC (auto) Cancelled RBC Cancelled Hgb Cancelled Hct Cancelled MCV Cancelled MCH Cancelled MCHC Cancelled RDW Cancelled Plt Count Cancelled MPV Cancelled Absolute Neuts (auto) Cancelled Absolute Lymphs (auto) Cancelled Absolute Monos (auto) Cancelled Absolute Eos (auto) Cancelled Absolute Basos (auto) Cancelled Add Manual Diff Cancelled Neutrophils % Cancelled Lymphocytes % Cancelled Monocytes % Cancelled Eosinophils % Cancelled Basophils % Cancelled Nucleated RBC % Cancelled Platelet Estimate Cancelled Platelet Comment Cancelled Normal RBC Morphology Cancelled Retic Count 6.83 H PT with INR INR Sodium 138 Potassium 4.1 Chloride 108 H Carbon Dioxide 27 Anion Gap 3 L BUN 11 D Creatinine < 0.8 D Creat Clearance w eGFR > 60 Random Glucose 97 Calcium 8.7 Iron TIBC Iron Saturation Total Bilirubin 1.1 H D AST 30 ALT 28 D Alkaline Phosphatase 54 D Troponin I < 0.03 Total Protein 5.4 L Albumin 3.4 L Urine Color Urine Appearance Urine pH Ur Specific [place] Urine Protein Urine Glucose (UA) Urine Ketones Urine Blood Urine Nitrite Urine Bilirubin Urine Urobilinogen Ur Leukocyte Esterase Urine RBC Urine WBC Urine Bacteria Stool Occult Blood Blood Type Antibody Screen Crossmatch 01/27/18 01/27/18 01/27/18 16:40 16:40 16:40 WBC 6.0 Corrected WBC (auto) RBC 2.21 L Hgb 6.7 L* Hct 20.4 L MCV 92.3 MCH 30.1 MCHC 32.6 RDW 13.6 Plt Count 274 MPV 9.8 Absolute Neuts (auto) Absolute Lymphs (auto) Absolute Monos (auto) Absolute Eos (auto) Absolute Basos (auto) Add Manual Diff Neutrophils % 77.4 Lymphocytes % 14.1 Monocytes % 5.5 Eosinophils % 2.8 Basophils % 0.2 Nucleated RBC % Platelet Estimate Platelet Comment Normal RBC Morphology Retic Count PT with INR 12.0 INR 1.07 Sodium Potassium Chloride Carbon Dioxide Anion Gap BUN Creatinine Creat Clearance w eGFR Random Glucose Calcium Iron TIBC Iron Saturation Total Bilirubin AST ALT Alkaline Phosphatase Troponin I Total Protein Albumin Urine Color Urine Appearance Urine pH Ur Specific [place] Urine Protein Urine Glucose (UA) Urine Ketones Urine Blood Urine Nitrite Urine Bilirubin Urine Urobilinogen Ur Leukocyte Esterase Urine RBC Urine WBC Urine Bacteria Stool Occult Blood Positive Blood Type Antibody Screen Crossmatch 01/27/18 01/27/18 01/27/18 16:40 16:40 16:40 WBC Corrected WBC (auto) RBC Hgb Hct MCV MCH MCHC RDW Plt Count MPV Absolute Neuts (auto) Absolute Lymphs (auto) Absolute Monos (auto) Absolute Eos (auto) Absolute Basos (auto) Add Manual Diff Neutrophils % Lymphocytes % Monocytes % Eosinophils % Basophils % Nucleated RBC % Platelet Estimate Platelet Comment Normal RBC Morphology Retic Count PT with INR INR Sodium 137 Potassium 4.0 Chloride 105 Carbon Dioxide 26 Anion Gap 6 L BUN 15 Creatinine < 0.8 Creat Clearance w eGFR > 60 Random Glucose 95 Calcium 9.1 Iron TIBC Iron Saturation Total Bilirubin < 0.5 AST 44 H D ALT 31 Alkaline Phosphatase 61 Troponin I Total Protein 5.7 L Albumin 3.5 Urine Color Urine Appearance Urine pH Ur Specific [place] Urine Protein Urine Glucose (UA) Urine Ketones Urine Blood Urine Nitrite Urine Bilirubin Urine Urobilinogen Ur Leukocyte Esterase Urine RBC Urine WBC Urine Bacteria Stool Occult Blood Blood Type O POSITIVE O POSITIVE Antibody Screen Cancelled Negative Crossmatch See Detail 01/27/18 01/27/18 01/28/18 17:40 17:50 08:30 WBC 6.5 Corrected WBC (auto) RBC 3.35 L D Hgb 9.9 L D Hct 30.5 L D MCV 90.9 MCH 29.5 MCHC 32.4 RDW 14.4 Plt Count 274 MPV 9.5 Absolute Neuts (auto) Absolute Lymphs (auto) Absolute Monos (auto) Absolute Eos (auto) Absolute Basos (auto) Add Manual Diff Neutrophils % 72.0 Lymphocytes % 17.1 Monocytes % 6.9 Eosinophils % 3.8 Basophils % 0.2 Nucleated RBC % Platelet Estimate Platelet Comment Normal RBC Morphology Retic Count PT with INR INR Sodium Potassium Chloride Carbon Dioxide Anion Gap BUN Creatinine Creat Clearance w eGFR Random Glucose Calcium Iron 328 H TIBC 379 Iron Saturation 87 H Total Bilirubin AST ALT Alkaline Phosphatase Troponin I Total Protein Albumin Urine Color Yellow Urine Appearance Clear Urine pH 6.5 Ur Specific [place] 1.020 Urine Protein Negative Urine Glucose (UA) Negative Urine Ketones Negative Urine Blood Negative Urine Nitrite Negative Urine Bilirubin Negative Urine Urobilinogen 0.2 Ur Leukocyte Esterase 1+ H Urine RBC 0-2 Urine WBC 10-20 Urine Bacteria Few Stool Occult Blood Blood Type Antibody Screen Crossmatch HOSPITAL COURSE: Date of Admission:01/27/18 Date of Discharge: 01/28/18 Discharge Summary Reason For Visit: GASROINTESTINAL HEMORRHAGE Current Active Problems Anemia (Acute) GI bleed (Acute) Condition: Stable - Instructions Diet, Activity, Other Instructions: Please return to the ED for any new, persistent, or worsening symptoms. Follow up with your PCP in 1 week STOP taking Aspirin until you see Dr. Abernathy and he tells you to restart, for now you are no longer taking Continue new medications as directed and iron supplements Referrals: Figueroa Woodson MD [Primary Care Provider] - Fabio Abernathy [Non Staff, Medical] - Alexi Abernathy MD [Staff Physician] - 1 Week (Follow up in 1 week ) Disposition: HOME - Home Medications Comprehensive Discharge Medication List: Ambulatory Orders Multivitamin [Daily Multiple Vitamin] 1 each PO DAILY tablet 05/17/17 Ascorbic Acid [Vitamin C -] 500 mg PO BID #60 tablet 01/28/18 Docusate Sodium [Colace -] 100 mg PO DAILY #30 capsule 01/28/18 Ferrous Sulfate 325 mg PO BID #60 tablet 01/28/18 Pantoprazole Sodium [Protonix -] 40 mg PO DAILY #30 tablet.ec 01/28/18
--- NOTE | 2018-01-28 14:33 | PN ---
Progress Note (short form) - Note Progress Note: Patient seen and chart/labs reviewed with consult dictated and EGD to be arranged. Patient with occult GI blood loss, ?chronic ?due to ASA? Agree with PRBC transfusions, PPI and d/c of ASA. Will follow.
--- NOTE | 2018-01-28 14:36 | PN ---
Progress Note (short form) - Note Progress Note: Upper endoscopy performed to 3rd portion of duodenum with report in chart. Findings notable for small area of erythema in the gastric antrum ?ASA-related inflammation (otherwise normal study). Findings reviewed with patient and . Rec: Avoid ASA PPI daily Continue iron Begin PO as tolerated D/C home if stable Will followup in office in 1-2 weeks; if Hct stable/guaiac neg no further evaluation If signs of further bleeding, will arrange for colonoscopy and ?capsule study of small intestine
[2018-01-28 17:27] VITALS: BP 110/61; PULSE 76; TEMP 98.8
--- NOTE | 2018-01-28 19:03 | CONS ---
DATE OF CONSULTATION: 01/28/2018 HISTORY OF PRESENT ILLNESS: I was asked to evaluate this 62-year-old female admitted with severe anemia, palpitations, and fatigue. The patient has a history of anemia in the past as well as hypertension. She has been taking a baby aspirin daily chronically, preventatively for recommendations of a friend. She apparently may have had some dark stools for the past month or two. She believes she had an upper endoscopy and colonoscopy at [facility] 3-5 years ago for evaluation of anemia and believes the studies were unremarkable. Patient admitted via the emergency room with hemoglobin of 6.7. Her additional blood work included a white count of 6000, MCV of 92.3, and reticulocyte count of 6.83. Her chemistries included a serum iron level of 328 with an iron saturation of 87%. She has a normal BUN and creatinine. Her INR was 1.07. Stool was guaiac positive. Patient has received packed blood cells and is currently on a proton pump inhibitor off aspirin. She denies any abdominal pain, nausea, vomiting. PHYSICAL EXAMINATION: General: She is a well-developed, well-nourished female, slightly pale, no icterus. Lungs: Clear lungs. Cardiac: Regular rate and rhythm. Abdomen: Soft flat and nontender. IMPRESSION: Patient with likely occult GI bleeding, possibly aspirin related. Has had anemia in the past with reportedly negative colonoscopy and possible upper endoscopy. May have had dark stools intermittently these past several weeks as well. In view of clinical history, will arrange for an upper endoscopy to rule out ulcer disease or an upper GI tract source of bleeding. If this study is unremarkable, will follow clinically off aspirin, and if blood counts continue to drop, will arrange for colonoscopy and possibly a study of the small bowel. Our recommendations to follow findings on endoscopy. SUDEEP GEORGE M.D. RILEY/[id number]
--- NOTE | 2018-01-31 14:40 | PATH ---
Surgical Pathology Report Patient Name: SAMARA PEMBERTON Med. Rec. #: [id number] /Age/Gender: 1955 (Age: 62) / F Account: [id number] Location: [facility] Taken: 01/28/2018 Received: 01/28/2018 Reported: 01/31/2018 Physicians: Cy Yi M.D. Specimen(s) Received A: BX DUODENUM B: BX ANTRUM Clinical History Upper GI bleed Postoperative diagnosis: Anemia and gastritis Final Diagnosis A. DUODENUM, BIOPSY: DUODENAL MUCOSA WITH NO DIAGNOSTIC ABNORMALITIES. B. GASTRIC ANTRUM, BIOPSY: GASTRIC MUCOSA WITH MODERATE ACTIVE CHRONIC GASTRITIS. IMMUNOSTAIN IS POSITIVE FOR H. PYLORI ORGANISMS. Electronically Signed Evelio Hirsch M.D. Gross Description A. Received in formalin, labeled "duodenum" are 2 mccauley, irregular portions of soft tissue measuring 0.3 and 0.4 cm. in greatest dimension. The specimens are submitted in toto in one cassette. B. Received in formalin, labeled "antrum" are 2 mccauley, irregular portions of soft tissue measuring 0.3 and 0.5 cm. in greatest dimension. The specimens are submitted in toto in one cassette. /01/28/2018 saudi01/28/2018
== END 2018-01-28 17:30 | disposition home or self-care (01) ==
LOC: FER 15:35 → FM/S 18:02 → UNDOADMOB 19:48 → FM/S 19:48
PROVIDERS: ADMIT Internal Medicine; ATTEND Nurse Practitioner Acute Care
PROC: 0DJ08ZZ Inspection of Upper Intestinal Tract, Via Natural or Artificial Opening Endoscopic (ICD-10-PCS; principal; 2018-01-27)
PROC: 30233N1 Transfusion of Nonautologous Red Blood Cells into Peripheral Vein, Percutaneous Approach (ICD-10-PCS; 2018-01-27)
PROC: 3E033GC Introduction of Other Therapeutic Substance into Peripheral Vein, Percutaneous Approach (ICD-10-PCS; 2018-01-27)
PROC: 3E0337Z Introduction of Electrolytic and Water Balance Substance into Peripheral Vein, Percutaneous Approach (ICD-10-PCS; 2018-01-27)
DX: D50.0 Iron deficiency anemia secondary to blood loss (chronic) (principal); K92.1 Melena; I10 Essential (primary) hypertension; Z79.82 Long term (current) use of aspirin; R82.71 Bacteriuria; K31.89 Other diseases of stomach and duodenum
CPT/HCPCS: 36415; 36430; 71046-TC-FY; 80053; 81003; 81015; 82272; 82607; 82728; 82746; 83540; 83550; 84484; 85025; 85044; 85610; 86850; 86900; 86901; 86922; 87040; 88305-TC; 88342-TC; 93005; 96374; 96376; 99285-25; G0378; J7030; P9038; P9058

== ENCOUNTER 2018-02-04 18:45 | Emergency (ER) | payer OTHER ==
[2018-02-04 18:55] VITALS: BMI 21.4
[2018-02-04] MEDS ORDERED: SODIUM CHLORIDE 1,000 ML IV STA (19:09)
[2018-02-04] MEDS ORDERED: ACETAMINOPHEN 1000 MG/100 ML VIAL (NON FORMULARY) IVPB ONE (19:13)
--- NOTE | 2018-02-04 19:13 | PDOC ---
History of Present Illness - General History Source: Patient Exam Limitations: No Limitations - History of Present Illness Initial Comments: 02/04/18 19:55 The patient is a 62 year old female, with a significant PMH of anemia and L4-L5 spinal fusion who presents to the emergency department with headache, dizziness , chills, nausea, and fever TMax 102 for the past two days. The patient describes the headache as localized on the top of the head and denies exacerbation with positional changes. The patient took a Tylenol this morning for her symptoms. The source of the anemia is unknown. The patient had an endoscopy recently and has a scheduled colonoscopy. Patient had a second transfusion a few days ago. The patient denies any recent travel or sick contact. The patient denies chest pain or shortness of breath. Denies vomit, diarrhea and constipation. Denies dysuria, frequency, urgency and hematuria. PAST MEDICAL HISTORY: anemia PAST SURGICAL HISTORY: L4-L5 spinal fusion FAMILY HISTORY: no pertinent history MEDICATIONS: reviewed ALLERGIES: As per nursing notes <Debra Moreno - Last Filed: 02/04/18 19:59> - General History Source: Patient Exam Limitations: No Limitations - History of Present Illness Initial Comments: 19:45 Medical decision making this is a 62-year-old female who comes in complaining of fevers 2 days. Patient also complaining of a headache associated with fevers. Patient last took anything for the fever approximately 12 hours prior to arrival. We'll initiate a sepsis workup as patient has a fever of 101 and a heart rate of 109. Will hydrate patient with some fluids as patient's blood pressure is normal and does not require sepsis boluses Will monitor patient and reevaluate 02/04/18 21:18 Patient's white count is normal there is no left shift Patient's chemistries are unremarkable with the exception of some mildly elevated liver enzymes and a slightly low sodium of 134. Patient's urine does show a large amount of white cells and moderate bacteria moderate red cells and some protein consistent with acute urinary tract infection Assessment and plan: This is a 62-year-old female who comes in with headache and fever. On my exam there were no meningeal signs. Patient's headache resolved with some Tylenol and fluids. Patient workup revealed a urinary tract infection for which she was given ceftriaxone and discharged home on Macrobid. Patient does have a primary care doctor to follow-up with. <Raffaele Hancock I - Last Filed: 02/04/18 21:24> - General Chief Complaint: Pain Stated Complaint: FEVER, HEADACHE, ABD DISCOMFORT Time Seen by Provider: 02/04/18 19:07 Past History <Debra Moreno - Last Filed: 02/04/18 19:59> - Past Medical History Anemia: Yes COPD: No HTN: Yes - Suicide/Smoking/Psychosocial Hx Smoking History: Never smoked Have you smoked in the past 12 months: No Information on smoking cessation initiated: No Hx Alcohol Use: No Drug/Substance Use Hx: No Substance Use Type: None <Raffaele Hancock I - Last Filed: 02/04/18 21:24> - Past Medical History Allergies/Adverse Reactions: Allergies Allergy/AdvReac Type Severity Reaction Status Date / Time gabapentin Allergy Abdominal Verified 02/04/18 18:47 pain Home Medications: Ambulatory Orders Multivitamin [Daily Multiple Vitamin] 1 each PO DAILY tablet 05/17/17 Ascorbic Acid [Vitamin C -] 500 mg PO BID #60 tablet 01/28/18 Docusate Sodium [Colace -] 100 mg PO DAILY #30 capsule 01/28/18 Ferrous Sulfate 325 mg PO BID #60 tablet 01/28/18 Pantoprazole Sodium [Protonix -] 40 mg PO DAILY #30 tablet.ec 01/28/18 Nitrofurantoin Monohyd/M-Cryst [Macrobid -] 100 mg PO BID #14 capsule 02/04/18 Review of Systems - Review of Systems Able to Perform ROS?: Yes Comments:: 02/04/18 19:54 General: (+) Fever. (+) Chills. No weakness, no weight loss HEENT: No change in vision. No sore throat,. No ear pain CardioVascular: No chest pain or shortness of breath Respiratory:No cough, or wheezing. Gastrointestinal: (+) Nausea no vomiting, diarrhea or constipation, No rectal bleeding Genitourinary: No dysuria, hematuria, or frequency Musculoskeletal: No joint or muscle pain or swelling Neurologic: (+) Headache. (+) Dizziness. No vertigo or loss of consciousness Psychiatric: nor depression Skin: No rashes or easy bruising Endocrine: no increased thirst or abnormal weight change Allergic: no skin or latex allergy All other systems reviewed and normal <Debra Moreno - Last Filed: 02/04/18 19:59> *Physical Exam - Vital Signs Last Vital Signs Temp Pulse Resp BP Pulse Ox 101.1 F H 109 H 20 128/82 99 02/04/18 18:45 02/04/18 18:45 02/04/18 18:45 02/04/18 18:45 02/04/18 18:45 - Physical Exam Comments: 02/04/18 19:53 General: Well-nourished well-developed individual, no acute distress HEENT: Throat: Normal, tonsils normal, no erythema or exudate Neck: Supple, no meningeal signs, no lymphadenopathy Eyes::Pupils equal reactive and round, extraocular motion intact Chest: Nontender to palpation Cardiac: S1-S2 normal, regular rate and rhythm, no murmurs rubs or gallops Respiratory: Lungs clear to auscultation bilateral Abdomen: Soft, nondistended, normal bowel sounds, nontender to palpation diffusely Extremities: Warm, dry, no cyanosis, clubbing, or edema Skin: No rashes Neuro: Alert and oriented x3, nonfocal exam, grossly intact, normal gait Psych: Normal mood and affect <Debra Moreno - Last Filed: 02/04/18 19:59> - Vital Signs Last Vital Signs Temp Pulse Resp BP Pulse Ox 101.1 F H 109 H 20 128/82 99 02/04/18 18:45 02/04/18 18:45 02/04/18 18:45 02/04/18 18:45 02/04/18 18:45 <Raffaele Hancock I - Last Filed: 02/04/18 21:24> ED Treatment Course - LABORATORY CBC & Chemistry Diagram: 02/04/18 19:30 02/04/18 19:30 <Raffaele Hancock I - Last Filed: 02/04/18 21:24> *DC/Admit/Observation/Transfer - Attestations Scribe Attestion: 02/04/18 20:00 Documentation prepared by Debra Moreno, acting as medical scientist for Raffaele Hancock MD. <Debra Moreno - Last Filed: 02/04/18 19:59> - Discharge Dispostion Decision to Admit order: No <Raffaele Hancock I - Last Filed: 02/04/18 21:24> Diagnosis at time of Disposition: Cystitis - Discharge Dispostion Disposition: HOME Condition at time of disposition: Stable - Referrals Referrals: Figueroa Woodson MD [Primary Care Provider] - - Patient Instructions Additional Instructions: Take regular Tylenol 2 tablets as often as every 4-6 hours if needed for fevers , headache or pain. Take Macrobid 1 tablet twice a day for the urinary tract infection. Return to the emergency department immediately with ANY new, persistent or worsening symptoms. Continue any medications as previously prescribed by your physician. You should follow up with your primary doctor as soon as possible regarding today's emergency department visit. . Please make sure your doctor reviews the results of your emergency evaluation. Thank you for coming to the Emergency Department today for your care. It was a pleasure to see you today. Please note that your evaluation is INCOMPLETE until you follow-up with your doctor. - Post Discharge Activity
[2018-02-04] MEDS ORDERED: ACETAMINOPHEN INJECTION 100 ML IVPB ONE (19:42)
[2018-02-04 20:09] LABS: URINE APPEARANCE Clear; URINE BILIRUBIN Negative (NEGATIVE); URINE GLUCOSE (UA) Negative (NEGATIVE); URINE KETONE Negative (NEGATIVE); URINE NITRITE Negative (NEGATIVE); URINE UROBILINOGEN 0.2 (0.2-1.0)
[2018-02-04 20:10] LABS: BASO % 0.3 % (0-2.0); EOS % 2.1 % (0-4.5); HEMOGLOBIN 11.7 GM/dl (10.7-15.3); LYMPH % 12.9 % (8-40); MCHC 32.6 g/dl (32.0-36.0); MEAN CELL VOLUME 92.1 fl (80-96); MEAN PLT VOLUME 9.7 fl (7.5-11.1); MONO % 6.3 % (3.8-10.2); NEUT % 78.4 % (42.8-82.8); PLATELET COUNT 239 K/MM3 (134-434); RBC 3.91 M/mm3 (3.60-5.2); RDW 13.9 % (11.6-15.6); URINE BLOOD 2+ (NEGATIVE); URINE COLOR YELLOW; URINE LEUK ESTERASE 2+ (NEGATIVE); URINE PROTEIN 1+ (NEGATIVE)
[2018-02-04 20:25] LABS: ACTIVATED PTT 29.5 SECONDS (24.0-38.9); EPI CELLS FEW /HPF; URINE BACTERIA MODERATE /hpf (NEGATIVE); URINE WBC >100 (0-5)
[2018-02-04 20:27] LABS: ALK PHOS 88 U/L (32-92); ANION GAP 3 (8-16); BLOOD UREA NITROGEN 7 mg/dl (7-18); CALCIUM 7.3 mg/dl (8.4-10.2); CHLORIDE 110 mmol/L (98-107); CO2 21 mmol/L (22-28); GLUCOSE,RANDOM 96 mg/dl (74-106); POTASSIUM 3.6 mmol/L (3.5-5.1); SGOT/AST 93 U/L (10-42); SGPT/ALT 83 U/L (10-40); SODIUM 134 mmol/L (136-145); TOT PROT 5.3 g/dl (6.4-8.3)
[2018-02-04 20:29] LABS: BILIRUBIN,TOTAL < 0.5 mg/dl (0.2-1.0); CREATININE < 0.8 mg/dl (0.6-1.3); INR 1.17 (0.82-1.09); PROTHROMBIN TIME (PATIENT) 13.1 SEC (10.2-13.0)
[2018-02-04 20:40] LABS: VENOUS PC02 45.7 mmHg (38-52); VENOUS PH 7.36 (7.32-7.42)
[2018-02-04] MEDS ORDERED: CEFTRIAXONE 1,000 MG in DEXTROSE 5%-WATER - 50 ML IVPB ONE (20:46)
[2018-02-04] MEDS ORDERED: cefTRIAXone SODIUM 1 GM VIAL ONE (21:08)
[2018-02-04 21:50] VITALS: BP 120/56; PULSE 79; TEMP 98.4
== END 2018-02-04 21:50 | disposition home or self-care (01) ==
LOC: FER 18:45
PROC: 3E03329 Introduction of Other Anti-infective into Peripheral Vein, Percutaneous Approach (ICD-10-PCS; principal; 2018-02-04)
PROC: 3E033NZ Introduction of Analgesics, Hypnotics, Sedatives into Peripheral Vein, Percutaneous Approach (ICD-10-PCS; 2018-02-04)
PROC: 3E0337Z Introduction of Electrolytic and Water Balance Substance into Peripheral Vein, Percutaneous Approach (ICD-10-PCS; 2018-02-04)
DX: N30.90 Cystitis, unspecified without hematuria (principal); D64.9 Anemia, unspecified
CPT/HCPCS: 36415; 71045-TC-FY; 80053; 81003; 81015; 82803; 83605; 85025; 85610; 85730; 87040; 87086; 99285-25; J0131; J7030

== ENCOUNTER → 2019-06-15 | Day surgery (SDC) | payer OTHER ==
--- NOTE | 2019-06-16 17:12 | PATH ---
Surgical Pathology Report Patient Name: SAMARA PEMBERTON [facility]. Rec. #: [id number] /Age/Gender: 1955 (Age: 63) / F Account: [id number] Location: [facility] Taken: 06/15/2019 Received: 06/15/2019 Reported: 06/16/2019 Physicians: Lauren Brizuela Specimen(s) Received A: RIGHT BREAST SPECIMEN - WITH CALCIFICATIONS B: RIGHT BREAST SPECIMEN - WITHOUT CALCIFICATIONS Clinical History Nonpalpable lesion Mammographic findings: Microcalcification, suspicious Final Diagnosis A. BREAST SPECIMEN, RIGHT, WITH CALCIFICATIONS, STEREOTACTIC CORE BIOPSY: BENIGN BREAST PARENCHYMA WITH STROMAL FIBROSIS, FOCAL DILATED DUCTS, MILD PERIDUCTAL CHRONIC INFLAMMATION, AND MICROCYSTS WITH ASSOCIATED MICROCALCIFICATIONS. B. BREAST SPECIMEN, RIGHT, WITHOUT CALCIFICATIONS, STEREOTACTIC CORE BIOPSY: BENIGN BREAST PARENCHYMA WITH STROMAL FIBROSIS. Electronically Signed Ricarda Mckinney M.D. Gross Description A. Received in formalin labeled "right breast with calcifications," is a 2.0 x 1.5 x 0.3 cm aggregate of multiple mccauley-yellow, irregular to cylindrical portions of fibroadipose tissue. The formalin is filtered and the specimen is entirely submitted in one cassette. B. Received in formalin labeled "right breast without calcifications," is a 1.6 x 1.2 x 0.3 cm aggregate of multiple mccauley-yellow, irregular to cylindrical portions of fibroadipose tissue. The formalin is filtered and the specimen is entirely submitted in one cassette. Time to formalin fixation: 4 minutes Total formalin fixation time: Approximately 6 hours. /06/15/2019 [facility]06/15/2019
== END | disposition home or self-care (01) ==
LOC: FMAMMOTONE 12:21
PROVIDERS: ATTEND Internal Medicine Geriatric Medicine
PROC: 0HBT3ZX Excision of Right Breast, Percutaneous Approach, Diagnostic (ICD-10-PCS; principal; 2019-06-15)
DX: N60.11 Diffuse cystic mastopathy of right breast (principal); N60.31 Fibrosclerosis of right breast; N64.89 Other specified disorders of breast; R92.1 Mammographic calcification found on diagnostic imaging of breast
CPT/HCPCS: 19081; 87899; 88305-TC; A4648

== ENCOUNTER 2020-10-03 17:47 | Emergency (ER) | payer OTHER | END 2020-10-03 18:19 | disposition home or self-care (01) | LOC: JVIRT 17:47 | DX: Z11.52 Encounter for screening for COVID-19 (principal) | CPT/HCPCS: C9803; G2012-GT; U0003 ==

== ENCOUNTER 2021-08-22 09:10 | Emergency (ER) | payer OTHER ==
[2021-08-22 09:37] VITALS: BP 168/84; PULSE 94; TEMP 99.5; BMI 21.4
[2021-08-23 23:07] LABS: SARS-CoV-2 NAA Detected (Not Detected)
== END 2021-08-22 10:37 | disposition home or self-care (01) ==
LOC: FER 09:10
DX: U07.1 COVID-19 (principal); R05.1 Acute cough; J02.9 Acute pharyngitis, unspecified
CPT/HCPCS: 71045-TC-FY; 87804; 99284-25; C9803; U0003; U0005